=== PATIENT | female | born 1935 | race Caucasian/White ===

== ENCOUNTER 2017-08-04 04:38 | Emergency (ER) | payer OTHER, MEDICARE ==
[~2017-08-04] VITALS: Ht 172.7 cm; Wt 120.2 kg
[~2017-08-04 04:38] MED LIST: ACTOS 30 MG TAB30 MG PO; ALLOPURINOL 10100 M1 PO; ARTIFICIAL TEA1 EACH GTT; CILOXAN3.5 GM GTT; COLACE100 MG PO; DULCOLAX5 MG PO; ENALAPRIL MALEAT5 M1 PO; ERYTHROMYCIN E3.5 G1 OPHTHALMIC; FAST RELIEF LAX10 MG RECTAL; FLUZONE 2045 MCG/010; FUROSEMIDE 40 M40 M1 PO; KLOR-CON PO; LASIX PO; LEVEMIR SUBQ; LOVENOX SUBQ; LUBRICANT EYE D15 M2 OPHTHALMIC; MIRALAX255 GM PO; MOBIC15 MG PO; NOVOLOG100 UNIT/1 SUBQ; NYSTATIN1 EA10 TOP; ONDANSETRON HCL4 M3 PO; OXYCODONE HCL10 M1 PO; OXYCONTIN CR 2020 MG PO; PERCOCET 10-321 EACH PO; PHENERGAN 25 MG25 M1 PO; PNEUMOVAX25 MCG/0.5; POTASSIUM20 PO; PRILOSEC 20 MG20 MG PO; SENNA PO; SIMVASTATIN40 MG PO; SYNTHROID50 MCG PO; TOPROL XL50 MG PO; TRIAMTERENE-HC1 EAC3 PO; VASOTEC10 MG PO; ZAROXOLYN 5MG TA5 M1 PO; ZOCOR40 MG PO
[2017-08-04] MEDS ORDERED: UNICOMPLEX M TA1 TA1 PO (04:54)
[2017-08-04] MEDS ORDERED: HYDROCODON-ACE1 EAC7 PO (04:54)
[2017-08-04] MEDS ORDERED: VITAMIN D35000 UNIT PO (04:55)
[2017-08-04] MEDS ORDERED: CHILDREN'S ASPI81 M1 PO (04:56)
[2017-08-04] MEDS ORDERED: MAGNESIUM250 M1 PO (04:56)
[2017-08-04] MEDS ORDERED: CELEXA20 MG PO (04:57)
[2017-08-04] MEDS ORDERED: KLOR-CON 1010 MEQ PO (05:03)
[2017-08-04] MEDS ORDERED: BENAZEPRIL HCL5 MG PO (05:05)
[2017-08-04] MEDS ORDERED: LEVEMIR SUBQ (05:12)
[2017-08-04] MEDS ORDERED: CLONAZEPAM 1 MG1 M1 PO (05:13)
[2017-08-04] MEDS ORDERED: NYSTOP (05:14)
[2017-08-04 05:51] VITALS: BP 167/65
== END 2017-08-04 05:53 ==
LOC: ER 04:38
DX: S90.511A Abrasion, right ankle, initial encounter (principal); E11.9 Type 2 diabetes mellitus without complications; E78.00 Pure hypercholesterolemia, unspecified; I10 Essential (primary) hypertension; G89.29 Other chronic pain; M54.5 Low back pain; K21.9 Gastro-esophageal reflux disease without esophagitis; E03.9 Hypothyroidism, unspecified; E78.5 Hyperlipidemia, unspecified; M19.90 Unspecified osteoarthritis, unspecified site; Z79.4 Long term (current) use of insulin; Z90.710 Acquired absence of both cervix and uterus; Z88.5 Allergy status to narcotic agent; Z88.6 Allergy status to analgesic agent; Z88.8 Allergy status to other drugs, medicaments and biological substances; X58.XXXA Exposure to other specified factors, initial encounter; Y93.89 Activity, other specified; Y92.89 Other specified places as the place of occurrence of the external cause; Y99.8 Other external cause status

== ENCOUNTER 2017-08-19 18:52 | Emergency (ER) | payer OTHER, MEDICARE ==
[~2017-08-19] VITALS: Ht 172.7 cm; Wt 118.8 kg
[~2017-08-19 18:52] MED LIST changes: +BENAZEPRIL HCL5 MG PO; +CELEXA20 MG PO; +CHILDREN'S ASPI81 M1 PO; +CLONAZEPAM 1 MG1 M1 PO; +HYDROCODON-ACE1 EAC7 PO; +KLOR-CON 1010 MEQ PO; +MAGNESIUM250 M1 PO; +NYSTOP; +UNICOMPLEX M TA1 TA1 PO; +VITAMIN D35000 UNIT PO
[2017-08-19] MEDS ORDERED: KEFLEX500 M1 PO (19:06)
[2017-08-19] MEDS ORDERED: NORCO 5-325 TA1 EACH PO (19:48)
[2017-08-19] MEDS ORDERED: CALCIUM 600 +1 EAC1 PO (19:50)
[2017-08-19 20:45] VITALS: BP 175/60
== END 2017-08-19 21:11 | disposition home or self-care (01) ==
LOC: ER 18:52
DX: L03.115 Cellulitis of right lower limb (principal); E11.9 Type 2 diabetes mellitus without complications; E78.00 Pure hypercholesterolemia, unspecified; M54.5 Low back pain; G89.29 Other chronic pain; I10 Essential (primary) hypertension; E78.5 Hyperlipidemia, unspecified; M19.90 Unspecified osteoarthritis, unspecified site; K21.9 Gastro-esophageal reflux disease without esophagitis; E03.9 Hypothyroidism, unspecified; Z88.5 Allergy status to narcotic agent; Z88.6 Allergy status to analgesic agent

== ENCOUNTER 2019-03-04 17:57 | Emergency (ER) | payer OTHER, MEDICARE ==
[~2019-03-04] VITALS: Ht 172.7 cm; Wt 113.4 kg
[~2019-03-04 17:57] MED LIST changes: +CALCIUM 600 +1 EAC1 PO; +KEFLEX500 M1 PO; +NORCO 5-325 TA1 EACH PO
[2019-03-04] MEDS ORDERED: GABAPENTIN100 MG PO (18:12)
[2019-03-04] MEDS ORDERED: PEPCID20 MG PO (18:13)
[2019-03-04] MEDS ORDERED: VITAMIN D3400 UNIT PO (18:14)
[2019-03-04] MEDS ORDERED: MAGNESIUM250 M1 PO (18:14)
[2019-03-04] MEDS ORDERED: CALCIUM 500 +1 EAC5 PO (18:15)
[2019-03-04] MEDS ORDERED: CELEXA20 MG PO (18:15)
[2019-03-04] MEDS ORDERED: SIMVASTATIN40 MG PO (18:15)
[2019-03-04 23:00] VITALS: BP 135/90
== END 2019-03-04 22:55 | disposition home or self-care (01) ==
LOC: ER 17:57
DX: S00.12XA Contusion of left eyelid and periocular area, initial encounter (principal); M54.2 Cervicalgia; R60.0 Localized edema; M79.604 Pain in right leg; E78.5 Hyperlipidemia, unspecified; K21.9 Gastro-esophageal reflux disease without esophagitis; M19.90 Unspecified osteoarthritis, unspecified site; E03.9 Hypothyroidism, unspecified; E11.9 Type 2 diabetes mellitus without complications; M54.5 Low back pain; G89.29 Other chronic pain; E78.00 Pure hypercholesterolemia, unspecified; I10 Essential (primary) hypertension; Z88.8 Allergy status to other drugs, medicaments and biological substances; Z88.4 Allergy status to anesthetic agent; Z90.49 Acquired absence of other specified parts of digestive tract; Z88.5 Allergy status to narcotic agent; Z90.710 Acquired absence of both cervix and uterus; Z79.4 Long term (current) use of insulin; W01.198A Fall on same level from slipping, tripping and stumbling with subsequent striking against other object, initial encounter; Y92.89 Other specified places as the place of occurrence of the external cause; Y93.89 Activity, other specified; Y99.8 Other external cause status

== ENCOUNTER 2019-05-12 06:47 | Emergency (ER) | payer OTHER, MEDICARE ==
[~2019-05-12] VITALS: Ht 165.1 cm; Wt 113.4 kg
[~2019-05-12 06:47] MED LIST changes: +CALCIUM 500 +1 EAC5 PO; +GABAPENTIN100 MG PO; +PEPCID20 MG PO; +VITAMIN D3400 UNIT PO
[2019-05-12 07:33] LABS: ABSOLUTE NEUTROPHILS 2.8 thou/uL (1.4-8.2); BASOPHILS 0.9 % (0.0-2.0); EOSINOPHILS 1.4 % (0.0-3.0); HEMATOCRIT 39.9 % (37.0-47.0); HEMOGLOBIN 12.3 gm/dL (12.0-15.0); LYMPHOCYTES 40.6 % (24.0-44.0); MCH 29.2 pg (26.0-34.0); MCHC 30.9 g/dL (28.0-37.0); MCV 94.4 fL (80.0-100.0); MONOCYTES 10.4 % (1.0-8.0); PLATELET COUNT 136 thou/uL (150-400); POLYS 46.7 % (36.0-66.0); RBC 4.23 mil/uL (4.20-5.00); RDW 15.1 % (10.5-14.5)
[2019-05-12 07:42] LABS: ANION GAP 4 mmol/L (7-16); BUN 45 mg/dL (7-18); CALCIUM 9.5 mg/dL (8.5-10.1); CHLORIDE 105 mmol/L (98-107); CO2 33 mmol/L (21-32); CREATININE 1.9 mg/dL (0.6-1.0); GLUCOSE 132 mg/dL (74-106); POTASSIUM 4.6 mmol/L (3.5-5.1); SODIUM 142 mmol/L (136-145)
[2019-05-12 07:52] LABS: ALBUMIN 3.1 g/dL (3.4-5.0); MAGNESIUM 2.4 mg/dL (1.8-2.4); SGOT 32 U/L (15-37); SGPT 27 U/L (30-65); TOTAL BILIRUBIN 0.3 mg/dL (<0.1-1.0); TOTAL PROTEIN 6.9 g/dL (6.4-8.2); TROPONIN-I <0.06 ng/mL (<0.06)
[2019-05-12] MEDS ORDERED: TESSALON PERLE100 MG PO (08:24)
[2019-05-12] MEDS ORDERED: TRAMADOL 50 MG50 MG PO (08:24)
[2019-05-12 08:27] VITALS: BP 136/59
--- NOTE | 2019-05-12 17:15 | EKG ---
[place] [address] [facility] [place] [address] ELECTROCARDIOGRAM REPORT Name: DEEPAK HARVEY Room #: [facility]#: [id number] Admission: 05/12/19 Attend Phys: Discharge: 05/12/19 Date of : 35 Report #: [id number] THIS REPORT FOR: //name// [facility] ED Test Date: 2019-05-12 Test Time: 06:49:09 Pat Name: DEEPAK HARVEY Department: Room: Gender: F Pump Technician: BETH : 1935 Requested By: Pradeep Antunez Order Number: [id number] MD: Madhu Cooper Measurements Intervals [place] Rate: 87 P: 78 AR: 205 QRS: -58 QRSD: 132 T: 76 QT: 434 QTc: 522 Interpretive Statements Sinus rhythm Nonspecific intraventricular conduction delay Anteroseptal infarct, age indeterminate Compared to ECG 07/07/2011 14:36:09 No significant change was found Electronically Signed On 05-12-2019 17:15:14 DROPHAMMER OPERATOR by Madhu Cooper [email or web address] <ELECTRONICALLY SIGNED> By: Madhu Cooper MD, [facility] 05/12/19 [phone] Madhu Cooper MD, [facility] /EPI
== END 2019-05-12 08:27 | disposition home or self-care (01) ==
LOC: ER 06:47
PROVIDERS: Emergency Medicine
DX: R07.89 Other chest pain (principal); R05 Cough; R19.7 Diarrhea, unspecified; I12.9 Hypertensive chronic kidney disease with stage 1 through stage 4 chronic kidney disease, or unspecified chronic kidney disease; E11.22 Type 2 diabetes mellitus with diabetic chronic kidney disease; N18.9 Chronic kidney disease, unspecified; E78.00 Pure hypercholesterolemia, unspecified; K21.9 Gastro-esophageal reflux disease without esophagitis; M19.90 Unspecified osteoarthritis, unspecified site; G89.29 Other chronic pain; M54.5 Low back pain; E03.9 Hypothyroidism, unspecified; Z79.4 Long term (current) use of insulin; Z88.5 Allergy status to narcotic agent; Z88.6 Allergy status to analgesic agent

== ENCOUNTER 2019-07-18 23:34 | Inpatient (IN) | payer OTHER, MEDICARE ==
[~2019-07-18] VITALS: Ht 165.1 cm; Wt 118.4 kg
[~2019-07-18 23:34] MED LIST changes: +TESSALON PERLE100 MG PO; +TRAMADOL 50 MG50 MG PO
[2019-07-18 23:35] VITALS: BP 137/65
[2019-07-19] VITALS (7 sets, daily range): BP systolic 115–147; BP diastolic 45–80
[2019-07-19 00:13] LABS: ABSOLUTE NEUTROPHILS 3.8 thou/uL (1.4-8.2); BASOPHILS 0.8 % (0.0-2.0); EOSINOPHILS 1.1 % (0.0-3.0); HEMATOCRIT 35.6 % (37.0-47.0); HEMOGLOBIN 10.8 gm/dL (12.0-15.0); LYMPHOCYTES 30.8 % (24.0-44.0); MCH 28.8 pg (26.0-34.0); MCHC 30.5 g/dL (28.0-37.0); MCV 94.5 fL (80.0-100.0); MONOCYTES 8.7 % (1.0-8.0); PLATELET COUNT 137 thou/uL (150-400); POLYS 58.6 % (36.0-66.0); RBC 3.77 mil/uL (4.20-5.00); RDW 16.7 % (10.5-14.5); WBC 6.4 thou/uL (4.0-11.0)
[2019-07-19 00:16] LABS: ANION GAP 8 mmol/L (7-16); BUN 47 mg/dL (7-18); CALCIUM 8.7 mg/dL (8.5-10.1); CHLORIDE 104 mmol/L (98-107); CO2 30 mmol/L (21-32); CREATININE 2.4 mg/dL (0.6-1.0); GLUCOSE 230 mg/dL (74-106); POTASSIUM 4.8 mmol/L (3.5-5.1); SODIUM 142 mmol/L (136-145)
[2019-07-19 00:24] LABS: TROPONIN-I <0.06 ng/mL (<0.06)
--- NOTE | 2019-07-19 01:19 | NUR ---
ekg done in ER hand delivered to rn on 3 during transfer.
[2019-07-19] MEDS ORDERED: OMEPRAZOLE 20 M20 M1 PO (02:40)
[2019-07-19] MEDS ORDERED: LEVO-T75 MCG PO (02:43)
[2019-07-19] MEDS ORDERED: ALLOPURINOL 10100 M1 PO (02:47)
[2019-07-19] MEDS ORDERED: LOPERAMIDE2 MG PO (02:50)
[2019-07-19] MEDS ORDERED: NEURONTIN100 MG PO (02:51)
[2019-07-19] MEDS ORDERED: KLOR-CON M2020 MEQ PO (02:53)
[2019-07-19] MEDS ORDERED: MELATONIN3 M1 PO (02:54)
[2019-07-19] MEDS ORDERED: ARICEPT 5 MG TAB5 MG PO (02:54)
--- NOTE | 2019-07-19 11:45 | 2DMMODE ---
[facility] [place] [address] 2 D/M-MODE ECHOCARDIOGRAM Name: DEEPAK HARVEY Room #: 360-P [facility] IN [facility].#: [id number] Admission: 07/19/19 Attend Phys: Roman Mcfarlane MD Discharge: Date of : 35 Report #: [id number] THIS REPORT FOR: //name// APPROVED REPORT Study performed: 07/19/2019 10:20:40 EXAM: Comprehensive 2D, Doppler, and color-flow Echocardiogram Patient Location: Bedside Room #: 360 Status: routine BSA: 2.20 HR: 62 bpm BP: 131/54 mmHg Rhythm: NSR Other Information Study Quality: Good Indications Congestive Heart Failure Diabetes Dyspnea Hypertension/HDD 2D Dimensions RVDd: 34.46 mm IVSd: 11.29 (7-11mm) LVOT Diam: 18.32 (18-24mm) LVDd: 45.14 mm PWd: 10.65 (7-11mm) Ascending Ao: 26.15 (22-36mm) LVDs: 33.74 (25-40mm) Aortic Root: 26.12 mm IVC: 23.00 mm Volumes Left Atrial Volume (Systole) Single Plane 4CH: 62.17 mL Single Plane 2CH: 73.29 mL LA ESV Index: 35.00 mL/m2 Aortic Valve AoV Peak Sb.: 1.91 m/s AO Peak Gr.: 14.66 mmHg LVOT Max P.51 mmHg AO Mean Gr.: 8.59 mmHg LVOT Mean P.19 mmHg AO V2 Mean: 1.41 m/s LVOT Max V: 0.94 m/s AO V2 VTI: 54.70 cm LVOT Mean V: 0.70 m/s ALEKSANDRA (VTI): 1.31 cm2 LVOT V1 VTI: 27.19 cm [facility] [place] [address] 2 D/M-MODE ECHOCARDIOGRAM Name: DEEPAK HARVEY Room #: 360-P [facility].#: [id number] Admission: 07/19/19 Attend Phys: Roman Mcfarlane MD Discharge: Date of : 35 Report #: [id number] ALEKSANDRA Vmax: 1.29 cm2 SV (LVOT): 71.66 mL Mitral Valve E/A Ratio: 1.6 MV Decel. Time: 233.83 ms MV E Max Sb.: 1.52 m/s MV A Sb.: 0.98 m/s MV PHT: 67.81 ms IVRT: 78.43 ms Pulmonary Valve PV Peak Sb.: 1.10 m/s PV Peak Gr.: 4.92 mmHg Pulmonary Vein P Vein S: 0.39 m/s P Vein A: 0.27 m/s P Vein D: 0.72 m/s P Vein A Dur.: 96.9 msec P Vein S/D Ratio: 0.54 Tricuspid Valve TR Peak Sb.: 3.80 m/s TR Peak Gr.: 57.80 mmHg PA Pressure: 73.00 mmHg Left Ventricle The left ventricle is normal size. There is global hypokinesis of the left ventricle. There is hypokinesis in the apical wall. There is normal left ventricular wall thickness. Left ventricular systolic function is mildly decreased. LVEF is 40-45%. Grade IV - fixed restrictive diastolic dysfunction. Right Ventricle The right ventricle is normal size. The right ventricular systolic function is normal. Atria Left atrium is dilated. Right atrium is dilated. Aortic Valve The aortic valve is normal in structure. Aortic valve is calcified. Trace aortic regurgitation. Mild to moderate aortic stenosis. Mitral Valve The mitral valve is normal in structure. Mild to moderate mitral regurgitation. No evidence of mitral valve stenosis. [facility] [address] [place] [address] 2 D/M-MODE ECHOCARDIOGRAM Name: DEEPAK HARVEY Room #: 360-[facility] IN [facility].#: [id number] Admission: 07/19/19 Attend Phys: Roman Mcfarlane MD Discharge: Date of : 35 Report #: [id number] Tricuspid Valve The tricuspid valve is normal in structure. There is mild to moderate tricuspid regurgitation. Estimated PAP 73 mmHg. There is severe pulmonary hypertension. Pulmonic Valve The pulmonary valve is normal in structure. Trace pulmonic regurgitation. Great Vessels The aortic root is normal in size. The inferior vena cava is dilated with no inspiratory collapse. Pericardium There is no pericardial effusion. <Conclusion> The left ventricle is normal size. LVEF is 40-45%. There is global hypokinesis of the left ventricle. There is hypokinesis in the apical wall. Left atrium is dilated. Right atrium is dilated. The aortic valve is normal in structure. Aortic valve is calcified. Trace aortic regurgitation. The mitral valve is normal in structure. Mild to moderate mitral regurgitation. The tricuspid valve is normal in structure. There is mild to moderate tricuspid regurgitation. Estimated PAP 73 mmHg. There is severe pulmonary hypertension. The pulmonary valve is normal in structure. Trace pulmonic regurgitation. There is no pericardial effusion. <ELECTRONICALLY SIGNED> By: Jose Rafael Gaytan MD 07/19/19 1144 1144 1144 Jose Rafael Gaytan MD /INF
--- NOTE | 2019-07-19 16:37 | NUR ---
INITIAL ASSESSMENT: SW reviewed chart and spoke with nursing. Pt was admitted from [facility] due to CHF exacerbation. SW met with pt at bedside. Introduced role of SW. Pt is alert/orientated x 4. Pt reports she lives in an apt with a friend at [facility]. Prior to admission, pt was using a cane or walker to assist with ambulation. Pt was not on O2 prior to admission. Pt states she has not used HH services in the past. Pt has been to the SNF at [facility] in the past, and is agreeable to return to the SNF if needed at time of discharge. Therapy working with pt. facility planner to fax referral to [facility] tomorrow if SNF is recommended. SW is following to assist as needed with discharge planning.
--- NOTE | 2019-07-19 18:29 | NUR ---
Assumed care approx. 0700 this AM. Pt ALOx3 but confused on the time; pt can be forgetful. +3 edema noted to LE. Pt didn't void all shift. Dr. Mcfarlane notified after a bladder scan was done with [address] Mcfarlane gave an order to straight cath QS PRN, but if have to >[address] a santana catheter. When going to straight cath, pt had a large pool of urine in the bed for the first time today. Straight cath complete with 500 ml of urine out. Pt tolerated straight cath well, and said her bladder feels much more relaxed. No complaints of SOB or chest tightness. Will continue to monitor. Fall precautions in place. Slight progression toward plan of care goals today.
--- NOTE | 2019-07-19 19:43 | EKG ---
[place] [address] [place] [address] ELECTROCARDIOGRAM REPORT Name: DEPEAK HARVEY Room #: 360-P ADM IN M.R.#: [id number] Admission: 07/19/19 Attend Phys: Roman Mcfarlane MD Discharge: Date of : 35 Report #: [id number] THIS REPORT FOR: //name// [facility] ED Test Date: 2019-07-18 Test Time: 23:54:08 Pat Name: DEEPAK HARVEY Department: Room: 360 Gender: F Nursing Program Manager: nabila vargas : 1935 Requested By: John Hutton Order Number: [id number] MD: Madhu Cooper Measurements Intervals [place] Rate: 67 P: 62 VA: 190 QRS: -57 QRSD: 139 T: 67 QT: 528 QTc: 558 Interpretive Statements Sinus rhythm Nonspecific IVCD with LAD Anterior Q waves, possibly due to LVH Compared to ECG 05/12/2019 06:49:09 No significant change was found Electronically Signed On 07-19-2019 19:42:22 SECOND HAND PAPER MACHINE by Madhu Cooper [email or web address] <ELECTRONICALLY SIGNED> By: Madhu Cooper MD, [facility] 07/19/191941 2354 2354 Madhu Cooper MD, [facility] /EPI
--- NOTE | 2019-07-20 03:59 | NUR ---
Pt. slept fair during the night. She has been assisted to repositioned prn for comfort. On O2 at 3L/NC then RT titrated down to 2L/NC. No respiratory distress. Incontinent of bladder , female external cath in place with adequate output . Bladder scanned < 200. maing progress towards care plan goals.
[2019-07-20 04:36] VITALS: BP 122/42
[2019-07-20 06:24] LABS: ABSOLUTE NEUTROPHILS 3.3 thou/uL (1.4-8.2); BASOPHILS 0.8 % (0.0-2.0); EOSINOPHILS 0.8 % (0.0-3.0); HEMATOCRIT 34.8 % (37.0-47.0); HEMOGLOBIN 10.7 gm/dL (12.0-15.0); MCH 28.9 pg (26.0-34.0); MCHC 30.7 g/dL (28.0-37.0); MCV 94.2 fL (80.0-100.0); MONOCYTES 10.7 % (1.0-8.0); PLATELET COUNT 134 thou/uL (150-400); POLYS 46.7 % (36.0-66.0); RDW 16.5 % (10.5-14.5)
[2019-07-20 06:39] LABS: CALCIUM 8.8 mg/dL (8.5-10.1); CREATININE 2.4 mg/dL (0.6-1.0); MAGNESIUM 2.5 mg/dL (1.8-2.4); POTASSIUM 5.6 mmol/L (3.5-5.1)
--- NOTE | 2019-07-20 07:23 | H ---
[facility] [place] [address] [place] [address] HISTORY AND PHYSICAL Name: CANDICEDEEPAK J Room #: 360-P ADM IN ..#: [id number] Admission: 07/19/19 Attend Phys: Roman Mcfarlane MD Discharge: Date of : 35 Report #: [id number] THIS REPORT FOR: //name// CC: Roman Footevsky DATE OF SERVICE: 07/19/2019 HISTORY OF PRESENT ILLNESS: The patient is an 84-year-old female who was brought to the Emergency Room with a complaint of increasing shortness of breath and drop in her oxygen. The patient, on arrival to the hospital, had an oxygen saturation of 88% that was increased to 95% with the use of oxygen. The patient denies any chest pain or palpitation. She denies any nausea or vomiting. The patient denies any coughing or fever. The patient has never had symptoms like this before. PAST MEDICAL HISTORY: Significant for insulin-dependent diabetes mellitus, chronic lower back pain, hyperlipidemia, hypertension, previous history of surgery on the lower back at the level of L4-L5 in 2000, cholecystectomies in the 70s, hysterectomy in her 60s and appendectomy. The patient had cataract extraction in both eyes. The patient had a corneal abrasion, bilateral leg cellulitis, osteoarthritis, gastroesophageal reflux disease, hypothyroidism, L3-L4 compression fracture with laminectomy in 2011. The patient has chronic kidney disease even though she has never been diagnosed to have congestive heart failure. MEDICATIONS: The patient's medications were reviewed and reconciled. ALLERGIES: Include CODEINE, MORPHINE, NONSTEROIDAL ANTI-INFLAMMATORY and PROCAINE. SOCIAL HISTORY: The patient denies any smoking or alcohol use. FAMILY HISTORY: Noncontributory. REVIEW OF SYSTEMS: Negative besides what was mentioned above. PHYSICAL EXAMINATION: VITAL SIGNS: On arrival to the hospital, the patient's temperature was 98.5, pulse 75, respirations 16, blood pressure 133/50. Oxygen saturation was 95%. HEAD AND NECK: Unremarkable. NECK: Supple. LUNGS: Clear to auscultation with very poor respiratory effort. CARDIAC: S1, S2, without any murmur or gallop. ABDOMEN: Benign. Bowel sounds were positive. EXTREMITIES: +2 edema bilaterally. [facility] [address] [place] [address] HISTORY AND PHYSICAL Name: DEEPAK HARVEY Room #: [address] [place] [address] [place] [facility].#: [id number] Admission: 07/19/19 Attend Phys: Roman Mcfarlane MD Discharge: Date of : 35 Report #: [id number] LABORATORY DATA: The patient's 12-lead EKG showed sinus rhythm with nonspecific intraventricular conduction delay with left ventricular hypertrophy, anterior Q-wave that is possibly due to left ventricular hypertrophy. The patient's CBC with diff showed a white count of 6.4, hemoglobin 10.8, hematocrit 35.6, platelet count 137, neutrophils are 58%. The patient's basic metabolic panel showed sodium of 142, potassium 4.8, chloride 104, bicarbonate 30, BUN 47, creatinine 2.4, glucose 230, calcium 8.7. Troponin less than 0.06. BNP was 10,910, glucose 201. The patient's chest x-ray showed cardiomegaly with increasing interstitial markings. ASSESSMENT AND PLAN: 1. Acute congestive heart failure. 2. Shortness of breath. 3. Diabetes mellitus. 4. Chronic kidney disease with worsening renal function. 5. Morbid obesity. The patient was admitted to the hospital with the above-mentioned diagnoses. I will go ahead and resume the patient's medications. I will start the patient on Lasix. We are going to rule out myocardial infarction by serial cardiac enzymes. We have to have an echocardiogram to evaluate the patient's ejection fraction and rule out any abnormal wall movement. The patient to continue her diabetic medications. The patient to start physical therapy and occupational therapy. The patient to start on DVT prophylaxis. <ELECTRONICALLY SIGNED> By: Roman Mcfarlane MD 07/20/19 0723 0717 0758 Roman Mcfarlane MD /nt
[2019-07-20 08:05] VITALS: BP 112/48
[2019-07-20 11:39] VITALS: BP 109/41
--- NOTE | 2019-07-20 15:05 | NUR ---
SW reviewed chart and spoke with nursing. SW met with pt at bedside to discuss discharge plan. Pt is agreeable with referral to [facility]. Pt states she is agreeable with SNF placement if needed at time of discharge. workforce planner to fax referral to [facility] for review. SW is following to assist a needed with discharge planning.
--- NOTE | 2019-07-20 15:13 | NUR ---
DISCHARGE ANTICIPATED THURSDAY. PATIENT RESIDES AT [facility]. POST ACUTE RECOMMENDED AT DISCHARGE. PATIENT REFERRAL FAXED TO [facility] ADMISSIONS. CALL PLACED TO [facility] TO NOTIFY. VOICEMAIL LEFT FOR [facility]. AWAITING RESPONSE.
[2019-07-20 16:31] VITALS: BP 127/54
--- NOTE | 2019-07-20 17:18 | NUR ---
1300 pt up in the chair, denies any needs. Call light in reach. Chair alarm on. pt progressing towards care. Will continue to monitor.
[2019-07-20 19:34] VITALS: BP 121/39
[2019-07-21] VITALS (7 sets, daily range): BP systolic 92–152; BP diastolic 47–73
[2019-07-21 05:14] LABS: CALCIUM 9.4 mg/dL (8.5-10.1); CREATININE 1.9 mg/dL (0.6-1.0); POTASSIUM 5.1 mmol/L (3.5-5.1)
--- NOTE | 2019-07-21 05:14 | NUR ---
Pt. c/o headache at HS. Dr. Mcfarlane notified and order received. Tylenol given with good relief. She slept well during the night. She has been repositioned prn for comfort. O2 at 2L/NC ,she does get short of breath with exertion. Incontinent of bladder after shift change. Pericare given and femal external cath changed. Denies any concern at this time. Making progress towards care plan goals.
[2019-07-21 05:18] LABS: HEMATOCRIT 37.2 % (37.0-47.0); HEMOGLOBIN 11.5 gm/dL (12.0-15.0); MCV 93.6 fL (80.0-100.0); PLATELET COUNT 124 thou/uL (150-400); RBC 3.97 mil/uL (4.20-5.00); RDW 16.8 % (10.5-14.5)
--- NOTE | 2019-07-21 06:16 | NUR ---
COMMISSIONING ENGINEER ACTIVATED FOR NEW ONSET CP AND SOA. PT REQUIRING MORE O2 TO MAINTAIN O2 SATS. PLACED ON NRB. IV LASIX GIVEN PRIOR TO COMMISSIONING ENGINEER. PT EVENTUALLY ABLE TO WEAN O2 BACK TO 6L NC. CP SUBSIDED BREATHING EASED. SEE RAPID RESPONSE INTERVENTION FOR ADDITIONAL DETAILS.
[2019-07-21 06:26] LABS: ABSOLUTE NEUTROPHILS 3.6 thou/uL (1.4-8.2); PLATELET ESTIMATE DECREASED
[2019-07-21 06:57] LABS: URINE BILIRUBIN NEGATIVE (Negative); URINE BLOOD TRACE (Negative); URINE CLARITY CLEAR; URINE COLOR YELLOW; URINE GLUCOSE-RANDOM* NEGATIVE (Negative); URINE KETONES NEGATIVE (Negative); URINE LEUKOCYTES-REFLEX TRACE (Negative); URINE PROTEIN (DIPSTICK) NEGATIVE (Negative); URINE UROBILINOGEN 0.2 E.U./dl (0.2-1.0)
[2019-07-21 06:59] LABS: URINE NITRITE-REFLEX POSITIVE (Negative)
--- NOTE | 2019-07-21 08:04 | NUR ---
Pt. woke up this am around 0545 c/o shortness of breath and chest pain. O2 sat of 81% in RA,tachypneic and symptomatic. POSTDOCTORAL FELLOW activated. RT put pt. on NRB and O2 sat up to mid 90's then evntually 100%. Titrated O2 down to 4L by POSTDOCTORAL FELLOW team but only maintaining O2 sat of 88%. O2 up to 6L/HF with O2 sat in the low 90's. Scheduled lasix given. Garcia placed per order for accurate I/O. Temp of 101.[address] Mcfarlane notified and orders received. Pt. rated chest discomfort at 8/10. Ntg 0.4 mg SL given x 3 which brought the pain down to 2-3. Blood cultures obtained x2 then UA sent. VQ scan ordered for today. Renal consult called to answering service. Data Processing Control Clerk paged to update on above event per Dr. Mcfarlane's order, waiting for return call. Day RN updated. Loading dose of Zosyn given. Will continue to monitor.
[2019-07-21 08:26] LABS: CASTS None Seen /LPF (None Seen); CRYSTALS None Seen /LPF (None Seen); SQUAMOUS 0-3 Few /LPF (0-3)
[2019-07-21 08:34] LABS: URINE RBC 0-2 Rare /HPF (0-2); URINE WBC-REFLEX 6-15 Few /HPF (0-5)
--- NOTE | 2019-07-21 08:46 | EKG ---
[place] [address] [facility] [place] [address] ELECTROCARDIOGRAM REPORT Name: DEEPAK HARVEY Room #: 360-P ADM IN M.R.#: [id number] Admission: 07/19/19 Attend Phys: Roman Mcfarlane MD Discharge: Date of : 35 Report #: [id number] THIS REPORT FOR: //name// [facility] Test Date: 2019-07-21 Test Time: 05:55:05 Pat Name: DEEPAK HARVEY Department: Room: 360 Gender: F Canvassing Manager: : 1935 Requested By: Roman Mcfarlane Order Number: [id number] MD: Madhu Cooper Measurements Intervals [place] Rate: 113 P: 60 TX: 121 QRS: -54 QRSD: 142 T: 107 QT: 363 QTc: 498 Interpretive Statements Sinus tachycardia Left bundle branch block Baseline wander in lead(s) V3 Compared to ECG 07/18/2019 23:54:08 Heart rate has increased Electronically Signed On 07-21-2019 8:45:24 VISION MIXER by Madhu Cooper [email or web address] <ELECTRONICALLY SIGNED> By: Madhu Cooper MD, [facility] 07/21/19 0845 0555 0555 Madhu Cooper MD, [facility] /EPI
--- NOTE | 2019-07-21 11:55 | NUR ---
PT is A&OX3, but pt is forgetful, pt's chest pain has some improved, pt is continuing o2 6L/MIN/NC, pt has SOB with activities, pt has starts IV abx , pt's vs are stable, Cardiology has seeing pt,new order to go to Seasonal Package [facility] , after then, pt will transfer to CCU, pt understands well. pt was going to [facility] Package [facility] about 1015am.
--- NOTE | 2019-07-21 12:23 | NUR ---
SW reviewed chart and spoke with nursing. Pt was taken to cath laboratory technician earlier today. Pt may transfer to CCU following cath laboratory technician. [facility] is able to accept pt if SNF is needed at time of discharge. Pt is from the [facility] at [facility]. SW is following to assist as needed with discharge planning.
[2019-07-21 14:44] LABS: BE(vivo) -10.8 mmol/L (-2 to +3); HCO3 17.7 mmol/L (22.0-26.0); PCO2 50.2 mmHg (35.0-45.0); PO2 71.7 mmHg (80.0-100.0); sO2 89.7 % (92.0-98.0)
[2019-07-21 14:45] LABS: pH 7.164 (7.360-7.450)
--- NOTE | 2019-07-21 15:32 | NUR ---
RECEIVED PT FROM DIESEL ROLLER OPERATOR ~[address] CV CREW & R.T. PT ARRIVED ON IABP,1:1. GTTS HANGING-LEVO @ 10MCG/MIN,AMIODARONE @ 1MCG/MIN,DOPAMINE @ 10MCG/KG/MIN,INTEGRELLIN @ 19ML/HR.UTO DOPPLED SIGNALS DISTALLY,FAINT PALP FEMORAL PULSES BILAT.FEET COLD,WARM BLANKET APPLED.RT GROIN SITE INTACT,NO BLEEDING OR HEMATOMA,SOFT.--VW 1435-SON TREVOR IN.VISABLT UPSET,OH MY GOD,WHAT HAPPENED? MY MOM WOULD NOT WANT ANY OF THIS. HE HAS NOT SPOKEN TO ANY PHYSICIAN. CALL TO THRU OFFICE. EXPLAINED COURSE OF EVENTS BEST POSSIBLE.ENC SON TO CALL ALL FAMILY.PT IS IN CRITICAL CONDITION,ON FULL LIFE SUPPORT.THIS WAS EXPLAINED TO SON.SON STATES MOM HAS BEEN A DNR FOR MANY YEARS.SHOULD ANYTHING HAPPEN,LET NATURE TAKE IT'S COURSE & NOT INTERVENE.CHAPLAIN ZAMORA CALLED,UP & SAT W SON. SON MADE PHONE CALLS,LEFT TO GO SEE PT'S S.O. (IN [place],W/C BOUND). 2ND CALL TO THRU TREVA IN OFFICE.HE RETURNED CALL, UPDATED.ORDERS NOTED. HE WILL COME OVER WHEN SON RETURNS.ALL PRESSORS WILL BE LEFT AT CURRENT RATES. WILL NOT ADD ANYTHING ELSE.--VW
--- NOTE | 2019-07-26 08:19 | HC ---
[facility] [place] [address] [place] [address] CONSULTATION Name: DEEPAK HARVEY Room #: 247-P [facility] IN ..#: [id number] Admission: 07/19/19 Attend Phys: Roman Mcfarlane MD Discharge: 07/21/19 Date of : 35 Report #: [id number] THIS REPORT FOR: //name// CC: Roman Blackwell DATE OF SERVICE: 07/21/2019 REASON FOR PRESENTATION: Shortness of breath. REASON FOR CONSULTATION: Elevated creatinine. HISTORY OF PRESENT ILLNESS: This is an 84-year-old with no knowledge of her medical problems. She presented with worsening shortness of breath. This has been getting worse over the last few days. Her O2 sat was reported to be 88 on room air and she was brought for further evaluation. Chest x-ray was consistent with cardiomegaly with no evidence of pneumothorax, pleural effusion. Creatinine was elevated at 2.4. She has known history of cardiomyopathy with ejection fractions of around 40%. She is also known to have tricuspid regurgitation with severe pulmonary hypertension. The patient made about 3 liters of urine yesterday. She has very poor insight of her medical issues. She denies any kidney problems, but tells me that at one point, she was supposed to have back pain; however, this was counseled because her kidneys shut down completely and I am not really sure how accurate is that. She carries a diagnosis of diabetes mellitus and hypertension. Reviewing her medical charts, she has creatinine elevated. Her creatinine was elevated as high as 2.5 back in 2011. PAST MEDICAL HISTORY: 1. Diabetes mellitus. 2. Hypertension. 3. Hyperlipidemia. 4. Post-cholecystectomy. 5. Hysterectomy. 6. Cardiomyopathy. 7. Chronic kidney disease. 8. Severe pulmonary hypertension. ALLERGIES: CODEINE, MORPHINE, NONSTEROIDAL ANTI-INFLAMMATORY MEDICATIONS. SOCIAL HISTORY: Denies drug or alcohol abuse. Resides in a nursing facility. FAMILY HISTORY: Unable to obtain given the patient's mental status. REVIEW OF SYSTEMS: GENERAL: Significant for weakness. [facility] [address] [place] [address] CONSULTATION Name: DEEPAK HARVEY Room #: [address] [place] [address] [place] ..#: [id number] Admission: 07/19/19 Attend Phys: Roman Mcfarlane MD Discharge: 07/21/19 Date of : 35 Report #: [id number] CARDIOVASCULAR: Significant for shortness of breath. PULMONARY: Short of breath and dyspnea on exertion. GASTROINTESTINAL: No nausea or vomiting. GENITOURINARY: No frequency, no urgency. MUSCULOSKELETAL: Back pain and myalgias. NEUROLOGICAL: No headache, no dizziness. SKIN: No rash or ulcerations. PHYSICAL EXAMINATION: VITAL SIGNS: Blood pressure is 149/54, temperature 37.1. HEAD AND NECK: No jugular venous distention. CHEST: Bilateral crackles. CARDIOVASCULAR: No rub. ABDOMEN: Soft, nontender. EXTREMITIES: Lower extremities +2 edema. She does have bilateral venous stasis changes. LABORATORY DATA: Values reviewed. White blood cell count is 7, platelet is 124. Sodium 142, potassium 5.1, BUN is 48, creatinine is 1.9. Chest x-ray consistent with pulmonary edema. ASSESSMENT, IMPRESSION AND PLAN: 1. Chronic kidney disease. 2. Pulmonary edema. 3. Severe pulmonary hypertension. 4. Diabetes mellitus. 5. Hypoxemia with fluid overload. 6. The patient does have evidence of chronic kidney disease based on her laboratory values dating back to 2011. Her shortness of breath is solely due to fluid overload. She does have a component of significant severe pulmonary hypertension contributing to her issues. At this point, I see no reason to consider pulmonary embolism or CT scan. Continue with the diuresis. 7. Basic workup for chronic kidney disease. 8. Fluid status needs to be improved. 9. Salt restrictions. 10. Daily body weight. 11. We will continue to follow. <ELECTRONICALLY SIGNED> By: Maurice Lu MD 07/26/19 0819 0832 0843 Maurice Lu MD /nt
--- NOTE | 2019-08-01 08:27 | D ---
[facility] [place] [address] DISCHARGE SUMMARY Name: DEEPAK HARVEY Room #: 247-P [facility] IN .R.#: [id number] Admission: 07/19/19 Attend Phys: Roman Mcfarlane MD Discharge: 07/21/19 Date of : 35 Report #: [id number] THIS REPORT FOR: cc: John Blackwell MD, Michael D. MD Khalifa, Ammar MD ~ THIS REPORT FOR: //name// CC: Roman Blackwell DIAGNOSES ON DISCHARGE: Coronary artery disease, status post cardiac arrest. COURSE OF HOSPITALIZATION The patient was admitted to the hospital with signs of congestive heart failure. The patient's stay in the hospital was complicated with sudden onset of chest pain. The patient was taken to the cardiac catheterization to see if there is any cardiac event and unfortunately the patient was found to have a blockage and while she was getting the stenting done she coded. The patient was put on mechanical ventilation and was transferred to ICU and the patient's family decided that they do not want to have any aggressive measures. For this reason, the patient aggressive care was withdrawn and the patient immediately. <ELECTRONICALLY SIGNED> By: Roman Mcfarlane MD 08/01/19 0827 0857 1013 Roman Mcfarlane MD /nt
--- NOTE | 2019-08-03 08:46 | CATHLAB ---
[facility] [place] [address] INVASIVE PROCEDURE REPORT Name: DEEPAK HARVEY Room #: 247-P [facility] [place] .R.#: [id number] Admission: 07/19/19 Attend Phys: Roman Mcfarlane MD Discharge: 07/21/19 Date of : 35 Report #: [id number] THIS REPORT FOR: cc: John Blackwell MD, Michael D. MD Mancuso, Gerald M. MD [facility] ~ THIS REPORT FOR: //name// APPROVED REPORT Study performed: 07/21/2019 09:51:18 Patient Details Patient Status: Out-Patient Room #: The patient is a 84 year-old female Event Personnel Jean Ford Communications Equipment Operator, Moe Vanessa RTR Madeline Madden David Monitor, Awilda Vázquez RN RN, Samantha Conley RN RN, Shelly Park RN RN, Milka Wilson Monitor, Laura Ackerman RTR, URSULA Monitor Procedures Performed Right and Left Heart Cath w/or w/o Coronarie 6166825 [facility] BMS Place w/wo Plasty Single RCA 0429473 BMSSINGLE JOSE MANUEL Place w/wo Plasty Single Left Main 212561 Temporary Pacemaker Lead Inserted 8807066 TPI IABP Placement [id number] IABPI Indication Chest pain Procedure Narrative The Right Groin^ was infiltrated with 1% Lidocaine subcutaneous anesthesia. A PINNACLE 6FR Sheath #[id number] sheath was inserted into the . Coronary angiography was performed using coronary diagnostic catheters. The right coronary system was accessed and visualized with a JR4 catheter. The left coronary system was accessed and visualized with a 6FR JL5 #[id number] catheter. The left ventricle was accessed and visualized with a PIGTAIL catheter. Left ventricular/Aortic Valve gradient assessed via catheter pullback. Left ventriculogram was performed in 30 degree projection. Intraoperative Conscious Sedation Sedation start time: 05.18 Case end Time: [facility] [address] [place] [address] INVASIVE PROCEDURE REPORT Name: DEEPAK HARVEY Room #: 247-P [facility] [place] [facility].#: [id number] Admission: 07/19/19 Attend Phys: Roman Mcfarlane MD Discharge: 07/21/19 Date of : 35 Report #: [id number] 13.45 Fentanyl 100 mcg Versed 2 mg Fluoro Time: 30.3 minutes Dose: DAP 12905 cGycm2 3366 mGy Hemodynamics The right atrial mean pressure is 23 mmHg. The right ventricular pressure is 74/15 mmHg. The pulmonary artery pressure is 77/34 mmHg with a mean of 51 mmHg. The mean pulmonary capillary wedge pressure is 38 mmHg. The aortic pressure is 133/61 mmHg with a mean of 90 mmHg. The left ventricular pressure is 156/17 mmHg with a mean of mmHg. The left ventricular end diastolic pressure is 39 mmHg. The cardiac output using thermo method is 4.87 L/min. The cardiac index using thermo method is 2.20 L/min/m2. PCI Technique Lesion Percutaneous coronary intervention was performed on the proximal right coronary artery. A LAUNCHER 6FR 3DRC #[id number] Guide Catheter was used to engage the ostium. A Luge Wire .014 x 182CM #[id number] Interventional Guidewire was used to cross the lesion. BALLOON DILATION A Balloon catheter Sprinter OTW 2.5 x 10 #[id number] was inserted and inflated up to 16.00atm for 20seconds. STENT DEPLOYMENT A bare metal stent XIENCE RAS RX 2.75 X 12 #[id number] was inserted and inflated up to 16.00atm for 10seconds. COMMENTS TEMP PACER/IABP PCI Technique Lesion 2 Percutaneous Coronary Intervention was performed on the LM. A LAUNCHER 6FR JL4.5 #777883 Guide Catheter was used to engage the ostium. A Luge Wire .014 x 182CM #[id number] Interventional Guidewire was used to cross the lesion. Balloon Dilation A Balloon catheter Sprinter OTW 3.0 x 12 #[id number] was inserted and inflated up to 10.00atm for 7seconds. 4.0X10 16-10 Stent Deployment A bare metal stent RESOLUTE TAINA OTW 4.0 X 12 #[id number] was inserted and inflated up to 16atm for 30seconds. [address] [address] INVASIVE PROCEDURE REPORT Name: DEEPAK HARVEY Room #: 247-P [facility] [place] M.R.#: [id number] Admission: 07/19/19 Attend Phys: Roman Mcfarlane MD Discharge: 07/21/19 Date of : 35 Report #: [id number] Post Stent Deployment Balloon Dilation A Balloon catheter TREK NC RX 3.5 X 12 #[id number] was inserted and inflated up to 14atm for 10seconds. Additional Inflation: 14atm for 8seconds. PRE STENT-3.5X12 NC PCI Technique Lesion 3 Percutaneous Coronary Intervention was performed on the LM. Conclusion #1 successful emergent PTCA 7 ostial RCA lesion subtotaled with a 2.75 mm stent with JOEY grade 3 flow and mild to moderate distal disease #2 successful PTCA stent of a left main ostial high-grade lesion which had acute closure after angiography with clot formation. Placement of a 4.0 mm stent postdilated with a noncompliant balloon 3.75 with protestant of JOEY grade 3 flow Prior and during to this placement there was significant hypotension CPR had ensued 10 bradycardia pacemaker wire had been placed and subsequent intubation prior due to hypotension and hypoxemia. In addition and her coronary epinephrine intracoronary Integrilin was utilized due to extensive clot formation multiple prolonged periods of continued CPR #3 ostial circumflex moderately disease although's is nondominant vessel this was not intervened on #4 left ventricle with an inferior wall hypokinesis mild global hypokinesis at initiation although this patient significantly volume overloaded. #5 [place]-Radha catheter placed for monitoring purposes revealed significant volume overload pulmonary hypertension. #6 temporary pacemaker during the CODE BLUE CPR was placed and then removed post procedure #7 intubation per emergency room physician early in procedure was performed. #8 successful placement of intercurrent balloon pump Recommendations and plan the patient is on significant pressor support. There is protestant of flow into the left and right coronary systems after significant CPR and her coronary infusions pressor support and interaortic balloon pump placement Patient is transferred to ICU in critical condition. Prognosis would certainly be guarded here. <ELECTRONICALLY SIGNED> By: Jean Ford MD, [facility] 08/03/19 0845 4 Jean Ford MD, FACC /INF
== END 2019-07-21 18:31 | DRG 270 ==
LOC: ER 23:34 → 3W 07-19 00:37 → EROBS 07-19 00:37 → 3W 07-19 01:23 → ICU 07-21 14:02
PROVIDERS: Emergency Medicine; ADMIT Internal Medicine
PROC: 0CHY7BZ Insertion of Airway into Mouth and Throat, Via Natural or Artificial Opening (ICD-10-PCS; principal; 2019-07-19)
PROC: 02713DZ Dilation of Coronary Artery, Two Arteries with Intraluminal Device, Percutaneous Approach (ICD-10-PCS; 2019-07-21)
PROC: B2111ZZ Fluoroscopy of Multiple Coronary Arteries using Low Osmolar Contrast (ICD-10-PCS; 2019-07-21)
PROC: 4A1239Z Monitoring of Cardiac Output, Percutaneous Approach (ICD-10-PCS; 2019-07-21)
PROC: B2151ZZ Fluoroscopy of Left Heart using Low Osmolar Contrast (ICD-10-PCS; 2019-07-21)
PROC: 4A023N8 Measurement of Cardiac Sampling and Pressure, Bilateral, Percutaneous Approach (ICD-10-PCS; 2019-07-21)
PROC: 4A133B3 Monitoring of Arterial Pressure, Pulmonary, Percutaneous Approach (ICD-10-PCS; 2019-07-21)
PROC: 5A02110 Assistance with Cardiac Output using Balloon Pump, Intermittent (ICD-10-PCS; 2019-07-21)
DX: I13.0 Hypertensive heart and chronic kidney disease with heart failure and stage 1 through stage 4 chronic kidney disease, or unspecified chronic kidney disease (principal); J96.01 Acute respiratory failure with hypoxia; J96.02 Acute respiratory failure with hypercapnia; I50.33 Acute on chronic diastolic (congestive) heart failure; N17.9 Acute kidney failure, unspecified; Z68.41 Body mass index [BMI] 40.0-44.9, adult; L03.119 Cellulitis of unspecified part of limb; J95.88 Other intraoperative complications of respiratory system, not elsewhere classified; I97.88 Other intraoperative complications of the circulatory system, not elsewhere classified; I95.89 Other hypotension; I42.9 Cardiomyopathy, unspecified; E11.22 Type 2 diabetes mellitus with diabetic chronic kidney disease; N18.9 Chronic kidney disease, unspecified; E78.5 Hyperlipidemia, unspecified; Z66 Do not resuscitate; K21.9 Gastro-esophageal reflux disease without esophagitis; E03.9 Hypothyroidism, unspecified; M19.90 Unspecified osteoarthritis, unspecified site; M54.5 Low back pain; G89.29 Other chronic pain; E78.00 Pure hypercholesterolemia, unspecified; I07.1 Rheumatic tricuspid insufficiency; I27.20 Pulmonary hypertension, unspecified; E66.01 Morbid (severe) obesity due to excess calories; E87.5 Hyperkalemia; I46.9 Cardiac arrest, cause unspecified; Z98.1 Arthrodesis status; Z90.49 Acquired absence of other specified parts of digestive tract; Z90.710 Acquired absence of both cervix and uterus; Z90.89 Acquired absence of other organs; Z98.42 Cataract extraction status, left eye; Z98.41 Cataract extraction status, right eye; Z79.82 Long term (current) use of aspirin; Z79.891 Long term (current) use of opiate analgesic; Z79.899 Other long term (current) drug therapy; Z88.5 Allergy status to narcotic agent; Z88.8 Allergy status to other drugs, medicaments and biological substances
CPT/HCPCS: 10879